=== PATIENT | male | born 1985 | race American Indian/Alaskan Native ===

== ENCOUNTER 2018-06-11 08:42 | Outpatient (CLI) | payer MEDICAID, SELFPAY ==
[2018-06-11] VITALS (9 sets, daily range): BP systolic 116–132; BP diastolic 69–90; PULSE 96–117; RESP 16–18; TEMP 37.2; O2SAT 98–100
--- NOTE | 2018-06-11 09:09 | DI.RAD.S_ITS ---
PROCEDURE: PAIN C/T INTERLAMINAR INJECT INDICATIONS: SPONDYLOSIS FINDINGS: Fluoroscopic spot filming was performed to verify placement of spinal needles at the dorsal C6-C7 level, as labeled on the films. Appropriate location(s) of the needle tip(s) was confirmed by injection of iodinated contrast. IMPRESSION: Successful posterior midline interlaminar notch localization at C6-7 for epidural steroid injection. Dictated by: Eligio Pat M.D. on 06/11/2018 at 9:33 Approved by: Eligio Pat M.D. on 06/11/2018 at 9:34
[2018-06-11] MEDS: MIDAZOLAM 5 MG/5 ML VIAL IV (09:40)
--- NOTE | 2018-06-11 09:56 | PC.NURSE ---
pt tolerated procedure, able to get off the table with standby assist. Transferred pt via w/c to pre procedure room for continued monitoring with Caitlyn ANGEL.
--- NOTE | 2018-06-11 10:01 | PM.PROC.1 ---
Procedures Date/Time Date of procedure: 06/11/18 Time of procedure: 10:01 General Procedure description: PREOP DIAGNOSIS 1. CERVICAL STENOSIS, 2. CERVICAL HNP WITH UPPER EXTREMITY RADICULAR FEATURES, POST OP DIAGNOSIS 1. CERVICAL STENOSIS, 2. CERVICAL HNP WITH UPPER EXTREMITY RADICULAR FEATURES, PROCEDURES 1. FLUORSCOPICALLY GUIDED CONTRAST CONTROLLED INTERLAMINAR EPIDURAL STEROID INJECTION - C6/7 TL EMELY PHYSICIAN: Ryan Martinez, DO INDICATIONS Mookie is referred for treatment of Cervical HNP with Upper Extremity Paresthesias. FINDINGS Cervical Stenosis due to disc deterioration and nerve root irritation and nerve root irritation DESCRIPTION OF PROCEDURE Fluoroscopically guided, contrast-controlled C6/7 translaminar epidural steroid injection with conscious sedation. Following denial of allergy and review of potential side effects and complications, including, but not necessarily limited to, infection, allergic reaction, local tissue breakdown, temporary as well as permanent nerve injury, stroke, paralysis, and possible , the patient indicated that patient understood and agreed to proceed. An informed consent document was signed by the patient, witnessed by a nurse, and placed in the patient's chart. Additionally, other treatment options including modalities, medications, and physical therapy were reviewed with the patient. After review of previous anaesthesic history and IV conscious sedation the patient was deemed safe to proceed with todays procedure with IV conscious sedation as ASA class II designation. Safety time-out was performed to confirm patient ID, procedure to be performed and site of procedure. IV sedation was accomplished with a combination of 5mg of Versed administered by the RN after DO order, titrated to patient comfort during the course of the procedure while the patient remained responsive to all verbal commands. In the prone position, following sterile prep and drape of the cervical region, the C6/7 translaminar space was identified fluoroscopically. The skin was anesthetized via a 25-gauge 1.5-inch needle with 1% lidocaine solution. At this point, a 25-gauge, 2.5-inch short bevel spinal needle was atraumatically introduced and advanced under fluoroscopic guidance into epidural space at the C6/7 translaminar space. Depth was confirmed on lateral view. Radiological data, including multiple fluoroscopic views of the cervical spine, reveal a spinal needle at the C6/7 translaminar space. Lateral views then show placement of the needle in the epidural space. Subsequent views show contrast material flowing superiorly and inferiorly in the epidural space. DSA fluoroscopy with live contrast injection, once again, confirmed no vascular or intrathecal uptake. At this point, using loss of resistance technique with saline and air, the epidural space was entered. Following negative aspiration, injection of approximately 1.5 cc of Isovue-200 with live fluoroscopy in the AP view confirmed epidural flow in the epidural space without vascular or intrathecal uptake observed. Subsequently, a test dose of 1 cc of 1% lidocaine solution was injected and patient was observed for two minutes without signs or symptoms of complications, including abdominal pain, shortness of breath, bilateral upper or lower extremity weakness, nausea and vomiting, prior to steroid injection. At this point, 2cc or 20mg of dexamethasone was then injected without incident. The patient tolerated the procedure well without signs or symptoms of complications prior to being transferred to the recovery area for further monitoring, The patient was then transferred to the recovery area where they were observed for an appropriate period of time after the injection. The patient reported a VAS score of 6 prior to the procedure and a post-procedure VAS of 0. Total Fluoroscopy Time: 37.0 seconds Total Conscious Time: 24min POST OP INSTRUCTIONS The patient was provided a Pain Log to continue to record their response to the target-specific procedure prior to follow-up visit with the referring provider. Additionally, specific post-injection care instructions and a contact number to our office were provided if concerns arise regarding possible complications associated with the procedure are suspected. Ryan Martinez DO Complications: none
[2018-06-11] MEDS: IOPAMIDOL 15 ML VIAL 3 ML INJ (10:06)
[2018-06-11] MEDS: LIDOCAINE 1% 20 ML INJ 5 ML INJ (10:06)
[2018-06-11] MEDS: DEXAMETHASONE 10 MG/ML VIAL 20 MG INJ (10:06)
--- NOTE | 2018-06-11 10:07 | PC.NURSE ---
ACCEPTED CARE POST PROC. PT IN STABLE CONDITION
== END 2018-06-11 10:34 | disposition home or self-care (01) ==
PROVIDERS: Visit Provider Physical Medicine & Rehabilitation
DX: M48.02 Spinal stenosis, cervical region (principal); M50.123 Cervical disc disorder at C6-C7 level with radiculopathy
CPT/HCPCS: 62321; 99152; J1100; J2250